=== PATIENT | female | born 1940 | race Caucasian/White ===

== ENCOUNTER 2019-11-28 16:19 | Emergency (ER) | payer MEDICARE, MEDICAID, SELFPAY ==
[2019-11-28 16:30] VITALS: BP 140/68; PULSE 59; RESP 18; TEMP 37.5; O2SAT 99
--- NOTE | 2019-11-28 16:44 | ED.SKABFB ---
HPI - Skin/Abscess/Foreign Bdy General Chief complaint: Skin/Abscess/Foreign Body Stated complaint: rash on arms and legs Time Seen by Provider: 11/28/19 16:35 Source: patient and RN notes reviewed Mode of arrival: ambulatory Limitations: no limitations History of Present Illness HPI narrative: 79-year-old female presents with concern for itchy rash. Reports symptoms started yesterday with rash on both arms and spread to both legs. She denies any shortness of breath, difficulty swallowing, difficulty breathing, diarrhea, nausea, vomiting, fever. Is not aware of any triggers. MD complaint: rash Related Data Home Medications Medication Instructions Recorded Confirmed allopurinol 100 mg PO DAILY 11/28/19 11/28/19 alprazolam 0.5 mg PO BID 11/28/19 11/28/19 alprazolam 0.5 mg PO BID 11/28/19 11/28/19 carisoprodol 350 mg PO TID 11/28/19 11/28/19 clonazepam 0.5 mg PO HS 11/28/19 11/28/19 cyclosporine [Restasis] 1 drp OPHTHALMIC (EYE) HS 11/28/19 11/28/19 ergocalciferol (vitamin D2) 1,250 mcg PO WEEKLY 11/28/19 11/28/19 furosemide 40 mg PO BID 11/28/19 11/28/19 gabapentin 300 mg PO TID 11/28/19 11/28/19 hydrocodone-acetaminophen 1 tablet PO Q4-6H PRN 11/28/19 11/28/19 latanoprost 1 drp OPHTHALMIC (EYE) DAILY 11/28/19 11/28/19 travoprost [Travatan Z] 1 drp OPHTHALMIC (EYE) DAILY 11/28/19 11/28/19 zolpidem 5 mg PO HS 11/28/19 11/28/19 Allergies Allergy/AdvReac Type Severity Reaction Status Date / Time nitrofurantoin Allergy Unknown Verified 01/22/18 18:41 Penicillins Allergy Unknown Verified 02/14/14 09:45 Sulfa (Sulfonamide Allergy Unknown Verified 02/14/14 09:45 Antibiotics) cephalexin [From Keflex] Allergy Verified 11/28/19 16:36 clindamycin Allergy Verified 11/28/19 16:36 ADHESIVE TAPE Allergy Severe BLISTERS Uncoded 11/19/14 14:35 NITRATE Allergy Unknown Uncoded 01/22/18 18:41 Review of Systems Review of Systems: Narrative: CONSTITUTIONAL: Denies malaise, chills, sweats, or fever. EYES: Denies visual changes, redness, or discharge. ENT: Denies rhinorrhea, congestion, sinus pain, otalgia or sore throat. CARDIOVASCULAR: Denies chest pain, palpitations, or edema. RESPIRATORY: Denies cough or dyspnea. GASTROINTESTINAL: Denies abdominal pain, nausea, vomiting, diarrhea SKIN: Reports itchy rash on arms and legs MUSCULOSKELETAL: Denies myalgia. All systems reviewed & are unremarkable except as noted in HPI and below PMFSH Family History Family History (Updated 11/29/13 @ 07:13 by DOCTOR UNKNOWN) Father Family history of premature coronary heart disease Sibling Cerebrovascular accident Family history of lung cancer Mother Family history of primary malignant neoplasm of liver Family history of malignant neoplasm of bone Other Diabetes mellitus Family history of Hodgkin's lymphoma Family history of arthritis Social History Social History Smoking status: Never smoker Alcohol intake: never Comments At time of signature, agree with nursing past medical, surgical, social and family history. There is no relevant family history pertinent to the presenting complaint Exam Narrative: Exam Narrative: GENERAL: Well-appearing, well-nourished, and in no acute distress. HEAD: Normocephalic EYES: PERRLA, conjunctivae clear ENT: Nares clear. Mucous membranes moist. Oropharynx without edema, erythema or lesions. Tonsils not enlarged and without exudate. NECK: Supple. No lymphadenopathy. CHEST: No respiratory distress. Clear to auscultation. No bony deformities, no asymmetry. Speaks in full sentences. HEART: Regular rate and rhythm. No murmur heard. SKIN: Warm, dry patches of erythema with scattered papules noted to bilateral arms and legs NEURO: Alert and oriented x3. PSYCH: Normal mood and affect Course Course Emergency Course: Patient is aware of diagnosis, understands and agrees to treatment plan. Anticipatory guidance given. Patient agrees to follow-up as directed and is aware of reasons to s
== END 2019-11-28 17:06 | disposition home or self-care (01) ==
PROVIDERS: Emergency Provider Nurse Practitioner; PCP Internal Medicine Geriatric Medicine
DX: L25.9 Unspecified contact dermatitis, unspecified cause (principal); I25.110 Atherosclerotic heart disease of native coronary artery with unstable angina pectoris; I11.0 Hypertensive heart disease with heart failure; I50.9 Heart failure, unspecified; E78.00 Pure hypercholesterolemia, unspecified; M10.9 Gout, unspecified; H26.9 Unspecified cataract
CPT/HCPCS: 99203; 99213; G0463